=== PATIENT | male | born 1960 | race Caucasian/White ===

== ENCOUNTER 2024-02-22 10:23 | Outpatient (AMB) | payer OTHER, SELFPAY ==
--- NOTE | 2024-02-22 10:34 | MHC.PC.OV ---
Vital Signs 02/22/24 10:43 Height 5 ft 10 in Weight 261 lb 4 oz BMI 37.5 BP 126/74 Blood Pressure Location Lt brachial Position Sitting Respiration 14 Pulse 70 Pulse Source Pulse Oximeter Temp 98.1 F Temp Source Oral Pulse Oximetry (%) 95 Oxygen Delivery Method Room Air Intake Visit Reasons: Est Care Asthma Intake Note: new patient visit. F/U for asthma. Allergies No Known Allergies Allergy (Verified 02/22/24 10:35) Tobacco use date assessed: 02/22/24 Dental Screening Dental Screen Date: 02/22/24 Did you have a dental visit in the last 12 months?: Yes Did you have a dental problem in the last 6 months where you did not have access to dental care?: No Was dental information given to patient?: Patient has dentist HPI HPI Comments History of Present Illness Details This is a 63-year-old male with a past medical history of hyperlipidemia, impaired fasting glucose, hypertension, asthma, aneurysm of the ascending aorta, obesity and arthritis presenting to [facility]. He transferred from [facility]. He scheduled this appointment to discuss asthma symptoms. He got a new dog in January. He has been having increased asthma symptoms since then including dry cough, wheezing, tight breathing and shortness of breath. He usually does not use his rescue inhaler at all, but he has required it about once a day. It temporarily alleviates symptoms. He is on beclomethasone. Typically he took 2 puffs at night for the past 20 years, but 3 weeks ago he started taking in the morning as well. He has missed some morning doses. He reports modest improvement with this. He also endorses environmental allergies. He denies chest pain, hemoptysis, fevers, chills or unexplained weight loss. He does not smoke cigarettes. Sometimes he takes Benadryl at night. He endorses itchy eyes and sneezing. He is followed by Cardiology. He is on Repatha, Bystolic, hydrochlorothiazide-olmesartan and amlodipine. His blood pressure is normal today. His fasting glucose recently was mildly elevated, but his hemoglobin A1c was normal. He would like to be referred anew for screening colonoscopy. He did not hear from [facility] about scheduling it. He has eye exams with Dr. Pham. [facility] Medical History (Updated 02/22/24 @ 13:13 by TAMI Davies) Vitamin D deficiency Rheumatoid arthritis Retinal detachment Hyperlipidemia Internal hemorrhoid Alcohol use Obesity (BMI 30-39.9) Bilateral shoulder region arthritis Hypertension Moderate persistent asthma Aneurysm, ascending aorta Allergic to shellfish Surgical History (Updated 02/22/24 @ 13:14 by TAMI Davies) Hx of hernia repair Family History (Updated 02/22/24 @ 13:16 by TAMI Davies) Mother Diabetes mellitus Father Alzheimer disease Myocardial infarct Sister Hypertension Maternal Aunt Breast cancer Social History Housing: House Patient Tobacco Use Status: Never used Tobacco e-Cigarette/Vaping Use: Never Used service: No Current occupational status: employed Current occupation: [employer] Cognitive needs: No Hearing needs: No Vision needs: No Questionnaire PHQ-9 Over the last 2 weeks, how often have you been bothered by any of the following problems? 1. Little interest or pleasure in doing things: not at all 2. Feeling down, depressed, or hopeless: not at all 3. Trouble falling or staying asleep, or sleeping too much: not at all 4. Feeling tired or having little energy: not at all 5. Poor appetite or overeating: not at all 6. Feeling bad about yourself - or that you are a failure or have let yourself or your family down: not at all 7. Trouble concentrating on things, such as reading the newspaper or watching television: not at all 8. Moving or speaking so slowly that other people could have noticed. Or the opposite - being so fidgety or restless that you have been moving around a lot more than usual: not at all 9. Thoughts that you would be better off or of hurting yourself in some way: not at all Total score: 0 18818 - PHQ-9 Billing: Yes Source: Developed by Drs. Alfonso Burger, Trini Raya, Chiki Michaels and colleagues, with an educational guzman from [employer]. Thrive Questionnaire Date Thrive assessed: 02/22/24 I am a: Patient What is your living situation today?: I have a steady place to live Within the past 12 months, did the food you bought not last and you didn't have the money to get more?: Never true Within the past 12 months, did you worry whether your food would run out before you got money to buy more?: Never true Do you have trouble paying for medicines?: No Do you have trouble getting transportation to medical appointments?: No Do you have trouble paying your heating and electricity bill?: No Do you have trouble taking care of your child, family member or friend?: No Do you have trouble with day-to-day activities such as bathing, preparing meals, shopping, managing finances, etc.?: No Are you currently unemployed and looking for a job?: No Are you interested in more education?: No Please select the resources that you would like help with: None THRIVE Score: 0 AUDIT C Alcohol Use Questionnaire (AUDIT-C) 1. How often do you have a drink containing alcohol?: 4 or more times a week 2. How many drinks containing alcohol do you have on a typical day when you are drinking?: 3 or 4 3. How often do you have six or more drinks on one occasion?: Monthly (couple times a month) Total Score: 7 MIN-7 AMB Questionnaire MIN-7 Date MIN - 7 assessed: 02/22/24 Feeling nervous, anxious, or on edge: 0 = Not at all Not being able to stop or control worryin = Not at all Worrying too much about different things: 0 = Not at all Trouble relaxin = Not at all Being so restless that it is hard to sit still: 0 = Not at all Becoming easily annoyed or irritable: 0 = Not at all Feeling afraid as if something awful might happen: 0 = Not at all Total MIN-7 score (0-4 normal; 5-9 mild; 10-14 moderate; 15-21 severe): 0 Source: Developed by Drs. Alfonso Burger, Trini Raya, Chiki Michaels and colleagues, with an educational guzman from [employer]. MIN-7 Assessment Billing MIN-7 Assessment Tool: MIN-7 Assessment 88921 ACT Questionnaire In the past 4 weeks, how much of the time did your asthma keep you from getting as much done at work, school or at home?: Some of the time During the past 4 weeks, how often have you had shortness of breath?: More than once a day During the past 4 weeks, how often did your asthma symptoms wake you up at night or earlier than usual in the morning?: Not at all During the past 4 weeks, how often have you had to use your rescue inhaler or nebulizer medication?: More than 3 times per day (uses inhaler once a day) How would you rate your asthma control during the past 4 weeks?: Poorly controlled Score: 12 Review of Systems Const Details: Constitutional: No unexplained weight loss, fever, chills, fatigue or night sweats. Respiratory: see HPI Cardiovascular: No chest pain, chest pressure or chest discomfort. No palpitations or pedal edema. Gastrointestinal: No anorexia, nausea, vomiting or diarrhea. No abdominal pain. Physical exam (Primary Care) Vital Signs: Last Vital Signs Temp 98.1 F 02/22/24 10:43 Pulse 70 02/22/24 10:43 Resp 14 02/22/24 10:43 BP 126/74 02/22/24 10:43 Pulse Ox 95 02/22/24 10:43 Oxygen Delivery Method Room Air 02/22/24 10:43 BMI result Body Mass Index 37.5 Tobacco/Smoking Status: Tobacco use Status Tobacco use date assessed 02/22/24 02/22/24 10:49 Patient Tobacco Use Status Never used Tobacco 02/22/24 10:49 e-Cigarette/Vaping Use Never Used 02/22/24 10:49 PHQ-9: PHQ-9 Score PHQ-9: Total score 0 02/22/24 11:26 Thrive Assessment: Date of Thrive Assessment Date Thrive assessed 02/22/24 02/22/24 10:49 Const Other: Constitutional: Alert, in no distress. Ear, Nose and Throat: Canals clear. TMs normal. Normal nasal mucosa. No nasal discharge. Neck: Supple, Full range of motion. No lymphadenopathy. Respiratory: Clear to auscultation. Cardiovascular: S1 S2 regular. No murmurs. Extremities: Warm and well perfused. No clubbing, cyanosis or edema. Psychiatric: Normal mood and affect Assessment and Plan Assessment & Plan (1) Asthma: Code(s): J45.909 - Unspecified asthma, uncomplicated Qualifiers: Asthma complication type: uncomplicated Asthma persistence: persistent Asthma severity: moderate Qualified Code(s): J45.40 - Moderate persistent asthma, uncomplicated Plan: Patient now with uncontrolled asthma-new environmental exposure with dog at home. Discontinue beclomethasone inhaler. Switch to Symbicort 2 puffs twice daily. Gargle, rinse mouth and brush teeth after use. Refilled rescue inhaler. Patient says he is tried [id number] antihistamines. If he does not see improvement with the inhaler alone he can start Singulair. Cautioned patient about potential psychiatric side effects. He will discontinue it if he has any difficulty with it. He does not plan to remove the dog from his home. Refer patient to Allergy and immunology for consideration of immunotherapy. Follow up in 4-6 weeks for re-evaluation. (2) Encounter for screening for malignant neoplasm of colon: Code(s): Z12.11 - Encounter for screening for malignant neoplasm of colon (3) Environmental and seasonal allergies: Code(s): J30.89 - Other allergic rhinitis (4) Hypertension: Code(s): I10 - Essential (primary) hypertension Plan: Controlled. Continue current regimen and efforts at weight loss. Orders: Referrals Gastroenterology Referral Z12.11 - Encounter for screening for malignant neoplasm of colon Allergy & Immunology Referral J30.89 - Other allergic rhinitis, J45.909 - Unspecified asthma, uncomplicated Medications: New budesonide-formoterol 80-4.5 mcg/actuation (Symbicort) 2 puffs inhalation BID 10.2 grams 5RF 30 days montelukast 10 mg PO BEDTIME 30 tabs 5RF albuterol sulfate 90 mcg/actuation 2 puffs inhalation QID PRN 8.5 grams 3RF shortness of breath or wheezing Coding Level of Care Code Est Pt Level 4 (22549) Diagnoses Moderate persistent asthma without complication J45.40 Asthma complication type: uncomplicated Asthma persistence: persistent Asthma severity: moderate Encounter for screening for malignant neoplasm of colon Z12.11 Environmental and seasonal allergies J30.89 Hypertension I10 Additional Codes MIN-7 Assessment Billing - MIN-7 Assessment Tool: MIN-7 Assessment [id number] ([id number])
[2024-02-22 10:43] VITALS: BP 126/74; PULSE 70; RESP 14; TEMP 36.7; O2SAT 95; BMI 37.5
== END 2024-02-22 13:05 | disposition home or self-care (01) ==
PROVIDERS: PCP Physician Assistant Medical; Visit Provider Physician Assistant Medical
DX: J45.40 Moderate persistent asthma, uncomplicated (principal); Z12.11 Encounter for screening for malignant neoplasm of colon; J30.89 Other allergic rhinitis; I10 Essential (primary) hypertension
CPT/HCPCS: 99214

== ENCOUNTER 2024-03-07 09:57 | Outpatient (AMB) | payer OTHER, SELFPAY ==
--- NOTE | 2024-03-07 07:55 | MHC.PC.OV ---
Vital Signs 03/07/24 10:08 Weight 261 lb 6 oz BP 140/82 H Blood Pressure Location Lt brachial Position Sitting Pulse 64 Pulse Source Pulse Oximeter Temp 97.8 F Temp Source Temporal Artery Scan Pulse Oximetry (%) 96 Oxygen Delivery Method Room Air Intake Visit Reasons: est/ asthma/ med review Intake Note: patient here to follow up on asthma. Early Childhood Special Educator Required: No Allergies No Known Allergies Allergy (Verified 03/07/24 10:03) Tobacco use date assessed: 02/22/24 Dental Screening Dental Screen Date: 02/22/24 HPI HPI Comments History of Present Illness Details This is a 63-year-old male with a past medical history of hyperlipidemia, impaired fasting glucose, hypertension, asthma, aneurysm of the ascending aorta, obesity and arthritis presenting for asthma symptoms. Since the patient was last seen on February 19 2024 he picked up Symbicort. He took it for 1 day, but he says it made asthma symptoms feel worse so he stopped it and went back to QVAR. He is taking 1-2 puffs of QVAR in the morning and 2 puffs at night. He is using albuterol frequently still. He started Singulair, but he has only been on it a couple of weeks. He denies side effects on it. He took a trip to [facility], and he was staying in a basement that was musty, and his symptoms were worse when he was there. He is a bit better today. No fevers or chills. Cough is dry. Reviewed at last appointment: He scheduled this appointment to discuss asthma symptoms. He got a new dog in January. He has been having increased asthma symptoms since then including dry cough, wheezing, tight breathing and shortness of breath. He usually does not use his rescue inhaler at all, but he has required it about once a day. It temporarily alleviates symptoms. He is on beclomethasone. Typically he took 2 puffs at night for the past 20 years, but 3 weeks ago he started taking in the morning as well. He has missed some morning doses. He reports modest improvement with this. He also endorses environmental allergies. He denies chest pain, hemoptysis, fevers, chills or unexplained weight loss. He does not smoke cigarettes. Sometimes he takes Benadryl at night. He endorses itchy eyes and sneezing. [facility] Medical History (Updated 03/07/24 @ 14:04 by TAMI Davies) Allergic rhinitis Vitamin D deficiency Rheumatoid arthritis Retinal detachment Hyperlipidemia Internal hemorrhoid Alcohol use Obesity (BMI 30-39.9) Bilateral shoulder region arthritis Hypertension Moderate persistent asthma Aneurysm, ascending aorta Allergic to shellfish Surgical History (Updated 02/22/24 @ 13:14 by TAMI Davies) Hx of hernia repair Family History (Updated 02/22/24 @ 13:16 by TAMI Davies) Mother Diabetes mellitus Father Alzheimer disease Myocardial infarct Sister Hypertension Maternal Aunt Breast cancer Social History Housing: House Patient Tobacco Use Status: Never used Tobacco e-Cigarette/Vaping Use: Never Used Second Hand Smoke Exposure: No service: No Current occupational status: employed Current occupation: [employer] Cognitive needs: No Hearing needs: No Vision needs: No Questionnaire Thrive Questionnaire Date Thrive assessed: 02/22/24 MIN-7 AMB Questionnaire MIN-7 Date MIN - 7 assessed: 02/22/24 Source: Developed by Drs. Alfonso Burger, Trini Raya, Chiki Michaels and colleagues, with an educational guzman from [employer]. ACT Questionnaire In the past 4 weeks, how much of the time did your asthma keep you from getting as much done at work, school or at home?: Some of the time During the past 4 weeks, how often have you had shortness of breath?: Once a day During the past 4 weeks, how often did your asthma symptoms wake you up at night or earlier than usual in the morning?: 4 or more nights a week During the past 4 weeks, how often have you had to use your rescue inhaler or nebulizer medication?: More than 3 times per day How would you rate your asthma control during the past 4 weeks?: Poorly controlled Score: 9 Review of Systems Const Details: Constitutional: No unexplained weight loss, fever, chills, fatigue or night sweats. Respiratory: see HPI Cardiovascular: No chest pain, chest pressure or chest discomfort. No palpitations or pedal edema. Gastrointestinal: No anorexia, nausea, vomiting or diarrhea. No abdominal pain. Physical exam (Primary Care) Vital Signs: Last Vital Signs Temp 97.8 F 03/07/24 10:08 Pulse 64 03/07/24 10:08 BP 140/82 H 03/07/24 10:08 Pulse Ox 96 03/07/24 10:08 Oxygen Delivery Method Room Air 03/07/24 10:08 Tobacco/Smoking Status: Tobacco use Status Tobacco use date assessed 02/22/24 03/07/24 07:56 Patient Tobacco Use Status Never used Tobacco 03/07/24 07:56 e-Cigarette/Vaping Use Never Used 03/07/24 07:56 Thrive Assessment: Date of Thrive Assessment Date Thrive assessed 02/22/24 03/07/24 07:56 Const Other: Constitutional: Alert, in no distress. Ear, Nose and Throat: Canals clear. TMs normal. Normal nasal mucosa. No nasal discharge. Neck: Supple, Full range of motion. No lymphadenopathy. Respiratory: Clear to auscultation. Cardiovascular: S1 S2 regular. No murmurs. Extremities: Warm and well perfused. No clubbing, cyanosis or edema. Psychiatric: Normal mood and affect Assessment and Plan Assessment & Plan (1) Moderate persistent asthma: Code(s): J45.40 - Moderate persistent asthma, uncomplicated Qualifiers: Asthma complication type: uncomplicated Qualified Code(s): J45.40 - Moderate persistent asthma, uncomplicated (2) Allergic rhinitis: Code(s): J30.9 - Allergic rhinitis, unspecified Qualifiers: Allergic rhinitis trigger: other Allergic rhinitis seasonality: non-seasonal Qualified Code(s): J30.89 - Other allergic rhinitis Plan Continue Singulair 10 mg daily. Prednisone burst for 5 days. Side effects and administration reviewed. Trial of Dulera 2 puffs twice daily. Gargle and rinse mouth after use. Advised patient to start a multivitamin due to the negative effects on bones and joints with inhaled corticosteroids. Continue albuterol as needed. The patient has already been referred to Allergy and immunology. He has a follow up appointment scheduled in April. Medications: New prednisone 60 mg (3 x 20 mg) PO DAILY 5 days 15 tabs 0RF Coding Level of Care Code Est Pt Level 4 (87026) Complex EM visit Add On G2211 Diagnoses Moderate persistent asthma without complication J45.40 Asthma complication type: uncomplicated Non-seasonal allergic rhinitis due to other allergic trigger J30.89 Allergic rhinitis trigger: other Allergic rhinitis seasonality: non-seasonal
[2024-03-07 10:08] VITALS: BP 140/82; PULSE 64; TEMP 36.6; O2SAT 96
== END 2024-03-07 10:42 | disposition home or self-care (01) ==
PROVIDERS: PCP Physician Assistant Medical; Visit Provider Physician Assistant Medical
DX: J45.40 Moderate persistent asthma, uncomplicated (principal); J30.89 Other allergic rhinitis
CPT/HCPCS: 99213

== ENCOUNTER 2024-04-25 09:11 | Outpatient (AMB) | payer OTHER, SELFPAY ==
--- NOTE | 2024-04-25 09:16 | MHC.PC.OV ---
Vital Signs 04/25/24 09:24 Height 5 ft 10 in Weight 263 lb BMI 37.7 BP 134/78 Blood Pressure Location Lt brachial Position Sitting Respiration 16 Pulse 61 Pulse Source Pulse Oximeter Temp 98.3 F Temp Source Oral Pulse Oximetry (%) 96 Oxygen Delivery Method Room Air Intake Visit Reasons: asthma recheck Intake Note: patient here for follow up on asthma. Geriatric Nursing Assistant Required: No Allergies No Known Allergies Allergy (Verified 04/25/24 09:18) Tobacco use date assessed: 04/25/24 Dental Screening Dental Screen Date: 04/25/24 Did you have a dental visit in the last 12 months?: Yes Did you have a dental problem in the last 6 months where you did not have access to dental care?: No Was dental information given to patient?: Patient has dentist HPI HPI Comments History of Present Illness Details This is a 63-year-old male with a past medical history of hyperlipidemia, impaired fasting glucose, hypertension, asthma, aneurysm of the ascending aorta, obesity and arthritis presenting for asthma follow up. Symbicort was stopped because it made asthma symptoms worse. He went back on QVAR. He is taking Singulair. He stopped taking Claritin. He only took it for a few days, but he did not feel a difference on it. He was then placed on Dulera, and he is taking 2 puffs twice a day. He reports some improvement. He fell better when he was on vacation (away from his dog). He still requires albuterol once or twice per day. Endorses chest congestion, wheezing and feels like he has airway restriction. He does not always feel like albuterol alleviates the symptoms completely. No fevers, chills, chest pain or exertional symptoms. Cough is dry. Reviewed initial appointment: He scheduled this appointment to discuss asthma symptoms. He got a new dog in January. He has been having increased asthma symptoms since then including dry cough, wheezing, tight breathing and shortness of breath. He usually does not use his rescue inhaler at all, but he has required it about once a day. It temporarily alleviates symptoms. He is on beclomethasone. Typically he took 2 puffs at night for the past 20 years, but 3 weeks ago he started taking in the morning as well. He has missed some morning doses. He reports modest improvement with this. He also endorses environmental allergies. He denies chest pain, hemoptysis, fevers, chills or unexplained weight loss. He does not smoke cigarettes. Sometimes he takes Benadryl at night. He endorses itchy eyes and sneezing. ROS: Constitutional: No unexplained weight loss, fever, chills, fatigue or night sweats. Respiratory: No hemoptysis or sputum production. Cardiovascular: No chest pain, palpitations or edema. Gastrointestinal: No acid reflux, nausea, vomiting or abdominal pain Neurologic: No headache, dizziness, syncope Physical exam: Constitutional: Alert, in no distress. Head: Normocephalic. Neck: Supple, Full range of motion. No lymphadenopathy. No palpable thyroid masses. Respiratory: Clear to auscultation. Cardiovascular: S1 S2 regular. No murmurs. Extremities: Warm and well perfused. No clubbing, cyanosis or edema. Psychiatric: Normal mood and affect [facility] Medical History (Updated 03/07/24 @ 14:04 by TAMI Davies) Allergic rhinitis Vitamin D deficiency Rheumatoid arthritis Retinal detachment Hyperlipidemia Internal hemorrhoid Alcohol use Obesity (BMI 30-39.9) Bilateral shoulder region arthritis Hypertension Moderate persistent asthma Aneurysm, ascending aorta Allergic to shellfish Surgical History (Updated 02/22/24 @ 13:14 by TAMI Davies) Hx of hernia repair Family History (Updated 02/22/24 @ 13:16 by TAMI Davies) Mother Diabetes mellitus Father Alzheimer disease Myocardial infarct Sister Hypertension Maternal Aunt Breast cancer Social History Housing: House Patient Tobacco Use Status: Never used Tobacco e-Cigarette/Vaping Use: Never Used Second Hand Smoke Exposure: No service: No Current occupational status: employed Current occupation: [employer] Cognitive needs: No Hearing needs: No Vision needs: No Questionnaire Thrive Questionnaire Date Thrive assessed: 02/22/24 MIN-7 AMB Questionnaire MIN-7 Date MIN - 7 assessed: 02/22/24 Source: Developed by Drs. Alfonso Burger, Trini Raya, Chiki Michaels and colleagues, with an educational guzman from [employer]. ACT Questionnaire In the past 4 weeks, how much of the time did your asthma keep you from getting as much done at work, school or at home?: Some of the time During the past 4 weeks, how often have you had shortness of breath?: Once a day During the past 4 weeks, how often did your asthma symptoms wake you up at night or earlier than usual in the morning?: 4 or more nights a week During the past 4 weeks, how often have you had to use your rescue inhaler or nebulizer medication?: More than 3 times per day (once a daily) How would you rate your asthma control during the past 4 weeks?: Somewhat controlled Score: 10 Physical exam (Primary Care) Vital Signs: Last Vital Signs Temp 98.3 F 04/25/24 09:24 Pulse 61 04/25/24 09:24 Resp 16 04/25/24 09:24 BP 134/78 04/25/24 09:24 Pulse Ox 96 04/25/24 09:24 Oxygen Delivery Method Room Air 04/25/24 09:24 BMI result Body Mass Index 37.7 Tobacco/Smoking Status: Tobacco use Status Tobacco use date assessed 04/25/24 04/25/24 09:27 Patient Tobacco Use Status Never used Tobacco 04/25/24 09:27 e-Cigarette/Vaping Use Never Used 04/25/24 09:27 Thrive Assessment: Date of Thrive Assessment Date Thrive assessed 02/22/24 04/25/24 09:27 Assessment and Plan Assessment & Plan (1) Moderate persistent asthma: Code(s): J45.40 - Moderate persistent asthma, uncomplicated Qualifiers: Asthma complication type: uncomplicated Qualified Code(s): J45.40 - Moderate persistent asthma, uncomplicated (2) Allergic rhinitis: Code(s): J30.9 - Allergic rhinitis, unspecified Qualifiers: Allergic rhinitis trigger: other Allergic rhinitis seasonality: non-seasonal Qualified Code(s): J30.89 - Other allergic rhinitis Plan Continue Dulera 2 puffs twice daily. Continue Singulair 10 mg daily. I think patient should also resume Claritin, but he does not feel like it helped though he only took it a few days. We will try Combivent 1 puff every 6 hours as needed. Advised not to take albuterol rescue if he is using Combivent for rescue. Chest x-ray requested. He has an appointment with Allergy and immunology in 2 weeks for asthma and allergy management. Orders: Orders XR chest 2V Today J45.40 - Moderate persistent asthma, uncomplicated Medications: New ipratropium-albuterol 20-100 mcg/actuation (Combivent Respimat) 1 puff inhalation Q6H PRN 4 grams 0RF shortness of breath or wheezing Coding Level of Care Code Est Pt Level 4 (63514) Complex EM visit Add On G2211 Diagnoses Moderate persistent asthma without complication J45.40 Asthma complication type: uncomplicated Non-seasonal allergic rhinitis due to other allergic trigger J30.89 Allergic rhinitis trigger: other Allergic rhinitis seasonality: non-seasonal
[2024-04-25 09:24] VITALS: BP 134/78; PULSE 61; RESP 16; TEMP 36.8; O2SAT 96; BMI 37.7
== END 2024-04-25 09:55 | disposition home or self-care (01) ==
PROVIDERS: PCP Physician Assistant Medical; Visit Provider Physician Assistant Medical
DX: J45.40 Moderate persistent asthma, uncomplicated (principal); J30.89 Other allergic rhinitis
CPT/HCPCS: 99214

== ENCOUNTER 2025-01-09 08:30 | Outpatient (AMB) | payer OTHER, SELFPAY ==
--- NOTE | 2025-01-09 08:34 | A.OFFPC_ITS ---
Vital Signs 01/09/25 08:46 Height 5 ft 10 in Weight 251 lb 3 oz BMI 36.0 BP 138/88 Blood Pressure Location Lt brachial Position Sitting Respiration 14 Pulse 61 Pulse Source Pulse Oximeter Temp 97.9 F Temp Source Temporal Artery Scan Pulse Oximetry (%) 95 Oxygen Delivery Method Room Air Intake Visit Reasons: annual physical exam Intake Note: Jone presents in the office today for his annual physical. Allergies shellfish derived Allergy (Mild, Verified 01/09/25 08:37) throat swells Medication List - Last Reconciled 01/09/25 by TAMI Davies albuterol sulfate 90 mcg/actuation 2 puffs inhalation QID PRN amlodipine 10 mg PO DAILY beclomethasone dipropionate 80 mcg/actuation (Qvar RediHaler) 1 inh inhalation BID cyclobenzaprine 10 mg PO BEDTIME PRN evolocumab (Repatha SureClick) 140 mg subcut Q2W [id number]-oqchxkgtn-[id number] 100-62.5-25 mcg (Trelegy Ellipta) 1 inh inhalation Q24H losartan-hydrochlorothiazide 50-12.5 mg 2 tabs PO DAILY meloxicam 7.5 mg PO DAILY PRN minoxidil 10 mg PO DAILY montelukast 10 mg PO BEDTIME nebivolol 5 mg PO DAILY Tobacco use date assessed: 01/09/25 Dental Screening Dental Screen Date: 01/09/25 Did you have a dental visit in the last 12 months?: Yes Did you have a dental problem in the last 6 months where you did not have access to dental care?: No Was dental information given to patient?: Patient has dentist HPI HPI Comments History of Present Illness Details This is a 64-year-old male with a past medical history of hyperlipidemia, impaired fasting glucose, hypertension, asthma, aneurysm of the ascending aorta, obesity and arthritis presenting for a physical exam. He is followed by Dr. Slade. He is on Trelegy, QVAR and Singulair. He takes albuterol 0-1 times per week and with exercise. He still has the dry cough which they feel is related to asthma. He is also allergic to the dog he has at home, but his daughter is moving and will be taking the dog with her. He is followed by Dr. Tierney, cardiology. He is on Repatha, Bystolic, hydrochlorothiazide-olmesartan and amlodipine. His blood pressure is suboptimal today. Patient says he has an echocardiogram scheduled this summer to monitor his aortic aneurysm. He denies chest pain or shortness of breath. Patient is followed by Nephrology, Dr. Duran, for hypertension. He has a history of elevated fasting glucose, but his hemoglobin A1c has been normal. He would like a referral to [facility] in [place] for a s creening colonoscopy. He is overdue. He has eye exams with An[facility]. He takes cyclobenzaprine and meloxicam infrequently for arthritis back pain. We discussed immunizations, and he received Tdap here. He is going to pursue Prevnar 20 and Shingrix vaccine at his pharmacy. He will have blood work done here today. His revenue manager recent checked a CMP and lipid profile. ROS: Constitutional: No unexplained weight loss, fever, chills, fatigue or night sweats. Eyes: No vision changes, blurry vision, double vision, eye pain, eye redness, eye discharge. ENT: No hearing loss, sneezing, congestion, runny nose or sore throat. Respiratory: No shortness of breath, cough or sputum production. Cardiovascular: No chest pain, chest pressure or chest discomfort. No p alpitations or pedal edema. Gastrointestinal: No anorexia, nausea, vomiting or diarrhea. No abdominal pain or blood in stool. Genitourinary: No dysuria, hematuria, urinary frequency. No testicular pain, swelling, urethral discharge, masses. Neurologic: No headache, dizziness, syncope, unilateral weakness, ataxia, numbness or tingling in the extremities. Musculoskeletal: Occasional back pain. No joint pain or joint swelling. Hematologic/Lymphatics: No bleeding or bruising. No painful lymph nodes. Skin: No rash or itching. Endocrine: No cold or heat intolerance. No polyuria or polydipsia. Psychiatric: No depression or anxiety. No SI/HI. Physical exam: Constitutional: Alert, in no distress. Head: Normocephalic. Eyes: Pupils are equal, round and reactive to light. Extraocular muscles intact. Ear, Nose and Throat: Canals clear. TMs normal. Normal nasal mucosa. No nasal discharge. No oral lesions. Neck: Supple, Full range of motion. No lymphadenopathy. No palpable thyroid masses. Respiratory: Clear to auscultation. Cardiovascular: S1 S2 regular. No murmurs. No carotid bruits. Gastrointestinal: Abdomen soft, non-tender, non-distended. Normal bowel sounds. No palpable masses. Genitourinary: User Experience Developer present AT present. No scrotal/testicular masses. No palpable hernias. Neurologic: No focal neurological deficits. Symmetric patellar reflexes. Moves all extremities spontaneously. Sensation intact bilaterally. Skin: No rashes Musculoskeletal: No gross deformities. Normal range of motion. Extremities: Warm and well perfused. No clubbing, cyanosis or edema. Intact peripheral pulses bilaterally. Psychiatric: Normal mood and affect [facility] Medical History (Updated 01/09/25 @ 09:20 by TAMI Davies) Routine physical examination IFG (impaired fasting glucose) Allergic rhinitis Vitamin D deficiency Rheumatoid arthritis Retinal detachment Hyperlipidemia Internal hemorrhoid Alcohol use Obesity (BMI 30-39.9) Bilateral shoulder region arthritis Hypertension Moderate persistent asthma Aneurysm, ascending aorta Allergic to shellfish Surgical History (Updated 02/22/24 @ 13:14 by TAMI Davies) Hx of hernia repair Family History (Updated 01/09/25 @ 08:43 by Nano Boyce MA) Mother Diabetes mellitus Father Alzheimer disease Myocardial infarct Sister Hypertension Maternal Aunt Breast cancer Social History (Updated 01/09/25 @ 08:43 by Nano Boyce MA) Housing: House Alcohol intake: current Patient Tobacco Use Status: Never used Tobacco e-Cigarette/Vaping Use: Never Used Second Hand Smoke Exposure: No service: No Current occupational status: employed Current occupation: [employer] Cognitive needs: No Hearing needs: No Vision needs: No Questionnaire PHQ-9 Over the last 2 weeks, how often have you been bothered by any of the following problems? 1. Little interest or pleasure in doing things: not at all 2. Feeling down, depressed, or hopeless: not at all 3. Trouble falling or staying asleep, or sleeping too much: several days 4. Feeling tired or having little energy: several days 5. Poor appetite or overeating: not at all 6. Feeling bad about yourself - or that you are a failure or have let yourself or your family down: not at all 7. Trouble concentrating on things, such as reading the newspaper or watching television: not at all 8. Moving or speaking so slowly that other people could have noticed. Or the opposite - being so fidgety or restless that you have been moving around a lot more than usual: not at all 9. Thoughts that you would be better off or of hurting yourself in some way: not at all Total score: 2 Depression Screening Interpretation: Negative Depression Screening Done: Yes 55653 - PHQ-9 Billing: Patient declined-do not bill Source: Developed by Drs. Alfonso Burger, Trini Raya, Chiki Michaels and colleagues, with an educational guzman from [employer]. Thrive Questionnaire Date Thrive assessed: 01/09/25 I am a: Patient What is your living situation today?: I have a steady place to live Within the past 12 months, did the food you bought not last and you didn't have the money to get more?: Never true Within the past 12 months, did you worry whether your food would run out before you got money to buy more?: Never true Do you have trouble paying for medicines?: No Do you have trouble getting transportation to medical appointments?: No Do you have trouble paying your heating and electricity bill?: No Do you have trouble taking care of your child, family member or friend?: No Do you have trouble with day-to-day activities such as bathing, preparing meals, shopping, managing finances, etc.?: No Are you currently unemployed and looking for a job?: No Are you interested in more education?: No Please select the resources that you would like help with: None Currently or been in a relationship where the following occur: No concerns reported THRIVE Score: 0 AUDIT C Alcohol Use Questionnaire (AUDIT-C) 1. How often do you have a drink containing alcohol?: 4 or more times a week 2. How many drinks containing alcohol do you have on a typical day when you are drinking?: 3 or 4 3. How often do you have six or more drinks on one occasion?: Monthly Total Score: 7 Score Reviewed/Action Taken: Yes MIN-7 AMB Questionnaire MIN-7 Date MIN - 7 assessed: 01/09/25 Feeling nervous, anxious, or on edge: 0 = Not at all Not being able to stop or control worryin = Not at all Worrying too much about different things: 0 = Not at all Trouble relaxin = Not at all Being so restless that it is hard to sit still: 0 = Not at all Becoming easily annoyed or irritable: 0 = Not at all Feeling afraid as if something awful might happen: 0 = Not at all Total MIN-7 score (0-4 normal; 5-9 mild; 10-14 moderate; 15-21 severe): 0 Source: Developed by Drs. Alfonso Burger, Trini Raya, Chiki Michaels and colleagues, with an educational guzman from [employer]. MIN-7 Assessment Billing MIN-7 Assessment Tool: MIN-7 Assessment 13265 ACT Questionnaire In the past 4 weeks, how much of the time did your asthma keep you from getting as much done at work, school or at home?: None of the time During the past 4 weeks, how often have you had shortness of breath?: 1-2 times a week During the past 4 weeks, how often did your asthma symptoms wake you up at night or earlier than usual in the morning?: Not at all During the past 4 weeks, how often have you had to use your rescue inhaler or nebulizer medication?: Once a week or less How would you rate your asthma control during the past 4 weeks?: Somewhat controlled ACT Interpretation: Positive Score: 21 Physical exam (Primary Care) Vital Signs: Last Vital Signs Temp 97.9 F 01/09/25 08:46 Pulse 61 01/09/25 08:46 Resp 14 01/09/25 08:46 BP 138/88 01/09/25 08:46 Pulse Ox 95 01/09/25 08:46 Oxygen Delivery Method Room Air 01/09/25 08:46 BMI result Body Mass Index 36.0 Tobacco/Smoking Status: Tobacco use Status Tobacco use date assessed 01/09/25 01/09/25 08:49 Patient Tobacco Use Status Never used Tobacco 01/09/25 08:49 e-Cigarette/Vaping Use Never Used 01/09/25 08:49 PHQ-9: PHQ-9 Score PHQ-9: Total score 2 01/09/25 09:05 Depression Screening Interpretation: Negative Thrive Assessment: Date of Thrive Assessment Date Thrive assessed 01/09/25 01/09/25 08:49 Currently or been in a relationship where the following occur: No concerns reported Immunizations Boostrix Tdap 2.5 Lf unit-8 mcg-5 Lf/0.5 mL intramuscular syringe Performing Provider: TAMI Davies Performing Location: [facility] [place] Family Medicine Administered by: Rachael Garcia RN on 01/09/25 09:23 Dose Route Admin Location Dispensed Lot Number Expiration Date NDC Rn Mental Health 0.5 mL IM Left Deltoid 0.5 mL [id number] 09/20/26 13528-670-89 [employer]LA[employer]OSM[employer] VIS Given Date VIS Provided VIS Publication Date 01/09/25 Single Vaccine 21 Eligibility Eligibility Date Funding Source Not [facility] Eligible 01/09/25 Private Administration Comments: Vaccine administered by medical corps officer Nano Boyce under nurse supervision. Coding Level of Care Code Est Pt Prev Care 40-64y(36038) Diagnoses Routine physical examination Z00.00 IFG (impaired fasting glucose) R73.01 Vitamin D deficiency E55.9 Hyperlipidemia E78.5 Hypertension I10 Moderate persistent asthma without complication J45.40 Asthma complication type: uncomplicated Aneurysm, ascending aorta I71.21 Additional Codes Asthma Control Questionnaire - ACT Interpretation: Positive ([id number]) MIN-7 Assessment Billing - MIN-7 Assessment Tool: MIN-7 Assessment 26383 ([id number]) Assessment & Plan Assessment & Plan (1) Routine physical examination: Code(s): Z00.00 - Encounter for general adult medical examination without abnormal findings Category: Medical Plan: Patient is seen today for a routine physical. As part of this visit we reviewed the following issues, which are considered and essential part of preventative health in this age group: - Testicular cancer screening, which includes self exam teaching - Screening for colon cancer - Discussed Prostate cancer screening - Nutritional and exercise counseling - Counseling of injury prevention including fire prevention, smoke alarms and seat belt usage - Screening for depression - Education about skin cancer - Recommendations about immunizations - Recommendation of an eye exam (2) IFG (impaired fasting glucose): Code(s): R73.01 - Impaired fasting glucose Category: Medical Plan: Check hemoglobin A1c. Recommended diet low in carbohydrates and sugar. (3) Vitamin D deficiency: Code(s): E55.9 - Vitamin D deficiency, unspecified Category: Medical Plan: Check vitamin-D level. (4) Hyperlipidemia: Code(s): E78.5 - Hyperlipidemia, unspecified Category: Medical Plan: Managed by cardiology. Patient on Repatha. Lifestyle modifications reviewed. (5) Hypertension: Code(s): I10 - Essential (primary) hypertension Category: Medical Plan: Blood pressure is suboptimal today. Patient says he has a follow up scheduled with Nephrology. He will continue current medications for now. (6) Moderate persistent asthma: Code(s): J45.40 - Moderate persistent asthma, uncomplicated Category: Medical Qualifiers: Asthma complication type: uncomplicated Qualified Code(s): J45.40 - Moderate persistent asthma, uncomplicated Plan: Continue management per Allergy and immunology. (7) Aneurysm, ascending aorta: Code(s): I71.21 - Aneurysm of the ascending aorta, without rupture Category: Medical Plan: Patient reports he has a follow up echocardiogram this summer. Followed by Cardiology. Plan Routine physical in 1 year. Orders: Orders Hemoglobin A1c Today R73.01 - Impaired fasting glucose Complete Blood Count no Diff Today E55.9 - Vitamin D deficiency, unspecified, E78.5 - Hyperlipidemia, unspecified, I10 - Essential (primary) hypertension, Z00.00 - Encounter for general adult medical examination without abnormal findings Prostate Specific Antigen Today Z12.5 - Encounter for screening for malignant neoplasm of prostate TDaP Immunization Today Z23 - Encounter for immunization Vitamin D 25-OH (D2 and D3) Today E55.9 - Vitamin D deficiency, unspecified Referrals Gastroenterology Referral Z12.11 - Encounter for screening for malignant neoplasm of colon Medications: New cyclobenzaprine 10 mg PO BEDTIME PRN 30 tabs 3RF muscle spasm Changed From meloxicam 7.5 mg PO DAILY To meloxicam 7.5 mg PO DAILY PRN 30 tabs 3RF pain
[2025-01-09 08:46] VITALS: BP 138/88; PULSE 61; RESP 14; TEMP 36.6; O2SAT 95; BMI 36.0
--- OUTSIDE RECORDS SUMMARY | 2025-01-09 08:46 | XMS_ITS | Encounter Summary ---
Author Organization [facility] Address [address] [place] [address] Care Team Providers Care Applications Architect Name Role Phone SladeLinnette Primary Care Provider [phone] Encounter Details Date Type Department Care Team (Late st Contact Info) Description 06/15/2021 Orders Only [facility] Orthopedic Surgery [address] [facility] [address] [place] [address] John David MD [address] [facility] [address] [place] [address] Social History Tobacco Use Types Packs/Day Years Used Date Smoking Tobacco: Never Assessed Comments Unknown Sex and Gender Information Value Date Recorded Sex Assigned at Not on file Legal Sex Female 1:42 PM EDT Gender Identity Not on file Sexual Orientation Not on file documented as of this encounter Plan of Treatment Scheduled Orders Name Type Priority Associated Diagnoses Orde r Schedule XRAY SPINE, CERVICAL; 3 VIEWS OR LESS FC Imaging Routine Neck pain Expected: 06/15/2021, Expires: 06/15/2024 documented as of this encounter Visit Diagnoses Diagnosis Neck pain- Primary Cervicalgia documented in this encounter Care Teams Applications Architect Relationship Specialty Start Date End Date Linnette June [address] [place] [id number] PCP - General Internal Medicine 06/09/21 documented as of this encounter
--- OUTSIDE RECORDS SUMMARY | 2025-01-09 08:46 | XMS_ITS | Clinical Summary ---
Author Organization [facility] Address [address] [place] [address] Care Team Providers Care Electronic Engineering Draftsperson Name Role Phone Linnette June Primary Care Provider [phone] Allergies No known active allergies Medications Atorvastatin Calcium (LIPITOR) 20 MG tablet Take 20 mg by mouth 1 (one) time each day AFTER SUPPER 10/11/2020 Active Qvar RediHaler 80 MCG/ACT AEROSOL, BREATH ACTIVATED INHALE 2 PUFFS BY MOUTH TWICE DAILY INHALE 2 PUFFS BY MOUTH 2 TIMES DAILY. RINSE MOUTH AND THROAT AFTER USE 09/01/2020 Active Immunizations Name Administration Dates Next Due COVID-19, mRNA (Pfizer Pre F all 2022) Monovalent, 30 mcg/0.3 ml 08/23/2021,10/29/2020,10/08/2020 Covid-19, mRNA (Pfizer Pre F all 2022) Monovalent, 30 mcg/0.3 ml giacomo-sucrose (12+) 03/01/2022 Social History Tobacco Use Types Packs/Day Years Used Date Smoking Tobacco: Never Assessed Intimate Partner Violence Answer Date R ecorded Fear of Current or Ex-Partner Not on file Emotionally Abused Not on file 05/04/2023 Physically Abused Not on file 05/04/2023 Sexually Abused Not on file 05/04/2023 Feel Safe at Home Not on file 05/04/2023 Comments Unknown Sex and Gender Information Value Date Recorded Sex Assigned at Not on file Legal Sex Female 1:42 PM EDT Gender Identity Not on file Sexual Orientation Not on file Plan of Treatment Health Maintenance Due Date Last Done Comments Hepatitis C Screening 1962 Pap Smear 1978 DTaP/Tdap/Td (1 - Tdap) 1980 Mammogram/Breast Imaging 2002 Colon Cancer Screening 2007 Pneumococcal 50+ years (1 of 1 - PCV) 2012 Zoster (Shingrix) (1 of 2) 2012 COVID-19 Vaccine (5 - 2023- season) 2024 03/01/2022, 08/23/2021, 10/29/2020, Additional history exists Influenza (Season Ended) 2025 RSV (1 - 1-dose 75+ series) 2037 HPV Vaccine Aged Out No longer eligi ble based on patient's age to complete this topic Hep A Aged Out No longer eligi ble based on patient's age to complete this topic Hep B Aged Out No longer eligi ble based on patient's age to complete this topic Hib Aged Out No longer eligi ble based on patient's age to complete this topic Meningococcal ACWY Aged Out No longer eligible based on patient's age to complete this topic Zoster (Zostavax) Discontinued Insurance * Guarantor: GUERRERO ALVARADO Account Type Relation to Patient Date of Phone Billing Address Personal/Family [address] [place] [id number] [employer] Care Teams Electronic Engineering Draftsperson Relationship Specialty Start Date End Date Linnette June [address] [place] [phone] PCP - General Internal Medicine 06/09/21
--- OUTSIDE RECORDS SUMMARY | 2025-01-09 08:46 | XMS_ITS | Clinical Summary ---
Author Organization [facility] Facility Address [address] [address] Care Team Providers Care Private Chef Name Role Phone Symone Dey PA-C Primary Care Provider [phone] Allergies Active Allergy Reactions Criticality Noted Date Comments Hydrochlorothiazide W-Spironolactone Palpitations Low 04/23/2024 Shellfish Allergy Other (see comments) 02/16/20 21 Simvastatin Other (see comments) 04/23/2024 Medications beclomethasone (Qvar) 80 MCG/ACT inhaler Inhale 2 puffs every night 4 Active albuterol HFA (PROVENTIL HFA;VENTOLIN HFA) 108 (90 Base) MCG/ACT inhaler Inhale 1 puff Active aspirin 325 MG EC tablet Take 1 tablet by mouth 1 (one) time each day Active Repatha SureClick 140 MG/ML solution auto-injector Inject 2 mL into the shoulder, thigh, or buttocks every 14 (fourteen) days Active meloxicam (MOBIC) 7.5 MG tablet Take 7.5 mg by mouth if needed for moderate pain 3 Active Dulera 100-5 MCG/ACT inhaler Inhale 2 puffs in the morning and 2 puffs in the evening. 4 Active montelukast (SINGULAIR) 10 MG tablet Take 10 mg by mouth at bed time 4 Active Fluticasone-Umecl idin-Vilant (TRELEGY ELLIPTA IN) Inhale Active nebivolol (Bystolic) 5 MG tablet Take 1 tablet (5 mg total) by mouth 1 (one) time each day 90 tablet 3 4 Active olmesartan-hydroC HLOROthiazide (BENICAR HCT) 40-12.5 MG per tabletIndications :Benign essential hypertension Take 1 tablet by mouth in the morning and 1 tablet in the evening. 180 tablet 3 4 Active minoxidil (LONITEN) 10 MG tablet TAKE ONE TABLET BY MOUTH DAILY 30 tablet 11 4 Active amLODIPine (NORVASC) 10 MG tabletIndications :Benign essential hypertension Take 1 tablet (10 mg total) by mouth 1 (one) time each day 90 tablet 3 5 Active Active Problems Problem Noted Date Diagnosed Date Proteinuria, not otherwise specified 04/23/2024 Benign essential hypertension 02/15/2021 Resolved Problems Problem Noted Date Diagnosed Date Resolved Date Elevated blood pressure read ing without diagnosis of hypertension 02/15/2021 06/30/2021 Encounters Date Type Department Care Team Description 10/14/2024 Refill [facility] [address] [phone] Martin Ameena Benign essential hypertension from Last 3 Months Family History Medical History Relation Comments Heart disease Father Hypertension Father Hypertension Sibling Relation Status Comments Father Alive Mother Alive Sibling Social History Tobacco Use Types Packs/Day Years Used Date Smoking Tobacco: Never Smokeless Tobacco: Never Tobacco Cessation:Counseling Given: No Alcohol Use Standard Drinks/Week Comments Yes 0 (1 standard drink = 0.6 oz pure alcohol) Alcoholic Drinks/day: Occasional social drink Sex and Gender Information Value Date Recorded Sex Assigned at Not on file Legal Sex Male 5:14 PM EST Gender Identity Not on file Sexual Orientation Not on file Last Filed Vital Signs Vital Sign Reading Time Taken Comments Blood Pressure 151/87 07/25/2024 3:57 PM EST Pulse 60 07/25/2024 3:57 PM EST Temperature - - Respiratory Rate - - Oxygen Saturation 96% 04/23/2024 8:27 AM EDT Inhaled Oxygen Concentration - - Weight 111 kg (245 lb) 07/25/2024 3:57 PM EST Height 177.8 cm (5' 10 ) 04/23/2024 8:27 AM EDT Body Mass Index 35.15 04/23/2024 8:27 AM EDT Plan of Treatment Upcoming Encounters Date Type Department Care Team ([facility] st Contact Info) Description 01/23/2025 3:00 PM EDT Office Visit [facility] [address] [place] [id number] Jude Duran MD [address] [address] 04/17/2025 4:15 PM EDT Office Visit [facility] [address] [place] [id number] Jude Duran MD [address] [address] Health Maintenance Due Date Last Done Comments Colorectal Cancer Screening: Annual FOBT 2011 Colorectal Cancer Screening: Colonoscopy 2011 Colorectal Cancer Screening: Sigmoidoscopy 2011 Pneumococcal Vaccine: 50+ Ye ars (2 of 2 - PCV) 07/26/2012 07/26/2011 Influenza Vaccine (Season Ended) 2025 Pneumococcal Vaccine: Peds ( 0 to 5 Years) and At-Risk Patients (6 to 49 Years) Discontinued 07/26/2011 Hepatitis B Vaccine Aged Out No longe r eligible based on patient's age to complete this topic Insurance [employer] Care Teams Private Chef Relationship Specialty Start Date End Date Symone Dey PA-C [address] [place] [phone] PCP - General Internal Medicine 03/23/23
--- OUTSIDE RECORDS SUMMARY | 2025-01-09 08:46 | XMS_ITS | Encounter Summary ---
Author Organization [facility] Address 100 [facility] 200 [place] [address] Phone Care Team Providers Care Ball Machine Operator Name Role Phone Symone Dey PA-C Primary Care Provider [phone] Reason for Visit * Reason Comments Med Refill Encounter Details Date Type Department Care Team (Late Contact Info) Description 01/24/2023 Refill [facility] 200 [place] [address] Jude Duran MD [address] [address] Social History Tobacco Use Types Packs/Day Years Used Date Smoking Tobacco: Never Alcohol Use Standard Drinks/Week Comments Yes 0 (1 standard drink = 0.6 oz pure alcohol) Alcoholic Drinks/day: Occasional social drink Sex and Gender Information Value Date Recorded Sex Assigned at Not on file Legal Sex Male 5:14 PM EST Gender Identity Not on file Sexual Orientation Not on file documented as of this encounter Plan of Treatment Upcoming Encounters Date Type Department Care Team (Late Contact Info) Description 01/23/2025 3:00 PM EDT Office Visit [facility] [address] [place] [address] Jude Duran MD [address] [address] 04/17/2025 4:15 PM EDT Office Visit [facility] [address] [place] [address] Jude Duran MD [address] [address] documented as of this encounter Visit Diagnoses Not on filedocumented in this encounter Care Teams Ball Machine Operator Relationship Specialty Start Date End Date Symone Dey PA-C [address] [place] [address] PCP - General Internal Medicine 03/23/23 documented as of this encounter
--- OUTSIDE RECORDS SUMMARY | 2025-01-09 08:46 | XMS_ITS | Encounter Summary ---
Author Organization [facility] Address 100 [facility] 200 [place] [address] Phone Care Team Providers Care Hot Box Spotter Name Role Phone Symone Dey PA-C Primary Care Provider [phone] Reason for Visit * Reason Comments Med Refill Encounter Details Date Type Department Care Team (Late Contact Info) Description 04/18/2024 Refill [facility] 100 [facility] 200 [place] [address] Rommel Solano MD [facility] [address] Social History Tobacco Use Types Packs/Day Years Used Date Smoking Tobacco: Never Smokeless Tobacco: Never Alcohol Use Standard Drinks/Week Comments [...] Encounters Date Type Department Care Team (Late st Contact Info) Description 01/23/2025 3:00 PM EDT Office Visit [facility] [address] [place] [address] Jude Duran MD [address] [phone] 04/17/2025 4:15 PM EDT Office Visit [facility] [address] [place] [address] Jude Duran MD [address] [address] documented as of this encounter Visit Diagnoses Not on filedocumented in this encounter Care Teams Hot Box Spotter Relationship Specialty Start Date End Date Symone Dey PA-C [address] [place] [address] PCP - General Internal Medicine 03/23/23 documented as of this encounter
--- OUTSIDE RECORDS SUMMARY | 2025-01-09 08:46 | XMS_ITS | Encounter Summary ---
Author Organization [facility] Address [address] [facility] 200 [place] [address] Phone Care Team Providers Care Coremaker Experimental Name Role Phone Symone Dey PA-C Primary Care Provider [phone] Reason for Visit * Reason Comments Med Refill Encounter Details Date Type Department Care Team (Late Contact Info) Description 02/10/2023 Refill [facility] [address] [facility] [address] [place] [address] Jude Duran MD [address] [address] Social History Tobacco Use Types [...] Office Visit [facility] 115 [place] [address] Jude Duran MD [address] [address] 04/17/2025 4:15 PM EDT Office Visit [facility] [address] [place] [address] Jude Duran MD [address] [address] documented as of this encounter Visit Diagnoses Not on filedocumented in this encounter Care Teams Coremaker Experimental Relationship Specialty Start Date End Date Symone Dey PA-C [address] [place] [address] PCP - General Internal Medicine 03/23/23 documented as of this encounter
--- OUTSIDE RECORDS SUMMARY | 2025-01-09 08:46 | XMS_ITS | Encounter Summary ---
Author Organization [facility] Address 100 [facility] 200 [place] [address] Phone Care Team Providers Care Branch Operations Specialist Name Role Phone Symone Dey PA-C Primary Care Provider Reason for Visit * Reason Comments Med Refill Encounter Details Date Type Department Care Team (Late Contact Info) Description 02/02/2023 Refill [facility] 100 [facility] 200 [place] [address] Jude Duran MD [address] [address] Social History Tobacco Use Types [...] Office Visit [facility] 115 [place] [address] Jude Duran MD [address] [address] 04/17/2025 4:15 PM EDT Office Visit [facility] [address] [place] [address] Jude Duran MD [address] [address] documented as of this encounter Visit Diagnoses Not on filedocumented in this encounter Care Teams Branch Operations Specialist Relationship Specialty Start Date End Date Symone Dey PA-C [address] [place] [address] PCP - General Internal Medicine 03/23/23 documented as of this encounter
--- OUTSIDE RECORDS SUMMARY | 2025-01-09 08:46 | XMS_ITS ---
Author Name [facility] Organization Unknown History of Medication Use Medication Directions Dispensed Refills Start Date End Date [facility] Olmesartan Medoxomil-HCTZ 40-12.5 MG Oral Tablet Olmesartan Medoxomil-HCTZ 40-12.5 MG Oral Tablet QTY: 90 tablet Days: 90 Refills: 0 Written: 07/31/23 Patient Instructions: 07/31/2023 active amLODIPine Besylate 10 MG Oral Tablet amLODIPine Besylate 10 MG Oral Tablet QTY: 90 tablet Days: 90 Refills: 0 Written: 07/28/23 Patient Instructions: 07/28/2023 active Ezetimibe 10 MG Oral Tablet Ezetimibe 10 MG Oral Tablet QTY: 90 tablet Days: 90 Refills: 0 Written: 06/15/23 Patient Instructions: 06/15/2023 active Nebivolol HCl 2.5 MG Oral Tablet Nebivolol HCl 2.5 MG Oral Tablet QTY: 90 tablet Days: 90 Refills: 0 Written: 05/19/23 Patient Instructions: 05/19/2023 active Minoxidil 10 MG Oral Tablet Minoxidil 10 MG Oral Tablet QTY: 90 tablet Days: 90 Refills: 0 Written: 05/07/23 Patient Instructions: 05/07/2023 active Problems Problem Status Onset Date Problem Type Date of Resoluti on Source Asthma (disorder) active 2023-08-08 [facility]Act [facility] Cataract (disorder) active 2023-08-08 [facility]Act [facility] Hypertensive disorder, systemic arterial (disorder) active 2023-08-08 [facility] Arthritis (disorder) active 2023-08-08 ProblemAct [facility] Hyperlipidemia (disorder) active 2023-08-08 [facility]Act [facility] Encounters Encounter Type Encounter Reason Primary Diagnosis Location Date Ambulatory Pain in left knee Pain in left knee [facility] 08/08/2023 Care Team Organization Name Specialty Phone Email Start Date End [facility]
--- OUTSIDE RECORDS SUMMARY | 2025-01-09 08:46 | XMS_ITS | Encounter Summary ---
Author Organization [facility] Address 100 [facility] 200 [place] [address] Phone Care Team Providers Care Ranch Supervisor Name Role Phone Symone Dey PA-C Primary Care Provider [phone] Reason for Visit * Reason Comments Med Refill Encounter Details Date Type Department Care Team (Late Contact Info) Description 05/18/2023 Refill [facility] 100 [facility] 200 [place] [address] Jude Duran MD [facility] [address] Social History Tobacco Use Types [...] [facility] 115 [place] [address] Jude Duran MD [address] [address] 04/17/2025 4:15 PM EDT Office Visit [facility] [address] [phone] Jude Duran MD [address] [address] documented as of this encounter Visit Diagnoses Not on filedocumented in this encounter Care Teams Ranch Supervisor Relationship Specialty Start Date End Date Symone Dey PA-C [address] [place] [address] PCP - General Internal Medicine 03/23/23 documented as of this encounter
== END 2025-01-09 09:36 | disposition home or self-care (01) ==
LOC: HO.HMCFM 08:30
PROVIDERS: PCP Physician Assistant Medical; Visit Provider Physician Assistant Medical
DX: Z00.00 Encounter for general adult medical examination without abnormal findings (principal); R73.01 Impaired fasting glucose; E55.9 Vitamin D deficiency, unspecified; E78.5 Hyperlipidemia, unspecified; I10 Essential (primary) hypertension; J45.40 Moderate persistent asthma, uncomplicated; I71.21 Aneurysm of the ascending aorta, without rupture; Z23 Encounter for immunization

== ENCOUNTER → 2025-01-09 08:30 | Outpatient (BNVA) | payer OTHER, SELFPAY | PROVIDERS: PCP Physician Assistant Medical; Visit Provider Physician Assistant Medical ==

== ENCOUNTER 2025-01-09 09:28 | Outpatient (REF) | payer OTHER, SELFPAY ==
--- OUTSIDE RECORDS SUMMARY | 2025-01-09 10:21 | XMS_ITS | Encounter Summary ---
Author Organization [facility] Address 100 [facility] 200 [place] [address] Phone Care Team Providers Care Dye House Supervisor Name Role Phone Symone Dey PA-C Primary Care Provider [phone] Reason for Visit * Reason Comments Med Refill Encounter Details Date Type Department Care Team (Late Contact Info) Description 05/18/2023 Refill [facility] 100 [facility] 200 [place] [address] Jude Duran MD [facility] [address] Social History Tobacco Use Types [...] and [facility] 115 [place] [address] Jude Duran MD [address] [address] 04/17/2025 4:15 PM EDT Office Visit [facility] [address] [phone] Jude Duran MD [address] [address] documented as of this encounter Visit Diagnoses Not on filedocumented in this encounter Care Teams Dye House Supervisor Relationship Specialty Start Date End Date Symone Dey PA-C [address] [place] [address] PCP - General Internal Medicine 03/23/23 documented as of this encounter
--- OUTSIDE RECORDS SUMMARY | 2025-01-09 10:21 | XMS_ITS | Encounter Summary ---
Author Organization [facility] Address 100 [facility] 200 [place] [address] Phone Care Team Providers Care Machine Fixer Name Role Phone Symone Dey PA-C Primary Care Provider [phone] Reason for Visit * Reason Comments Med Refill Encounter Details Date Type Department Care Team (Late Contact Info) Description 04/18/2024 Refill [facility] 100 [facility] 200 [place] [address] Rommel Solano MD [facility] [address] Social History Tobacco Use Types [...] Office Visit [facility] 115 [place] [address] Jude Duran MD [address] [phone] 04/17/2025 4:15 PM EDT Office Visit [facility] [address] [place] [address] Jude Duran MD [address] [address] documented as of this encounter Visit Diagnoses Not on filedocumented in this encounter Care Teams Machine Fixer Relationship Specialty Start Date End Date Symone Dey PA-C [address] [place] [address] PCP - General Internal Medicine 03/23/23 documented as of this encounter
--- OUTSIDE RECORDS SUMMARY | 2025-01-09 10:21 | XMS_ITS | Clinical Summary ---
Author Organization [facility] Address [address] [address] Care Team Providers Care Foreign Trade Teacher Name Role Phone Symone Dey PA-C Primary Care Provider [phone] Allergies Active Allergy Reactions Criticality Noted Date [...] 10/14/2024 Refill [facility] [address] [address] Martin Ameena Benign essential hypertension from Last [...] Upcoming Encounters Date Type Department Care Team ([facility] st Contact Info) Description 01/23/2025 3:00 PM EDT Office Visit [facility] [address] [place] [address] Jude Duran MD [address] [address] 04/17/2025 4:15 PM EDT Office Visit [facility] 115 [place] [address] Jdue Duran MD [address] [address] Health Maintenance Due Date Last [...] patient's age to complete this topic Insurance [employer] Care Teams Foreign Trade Teacher Relationship Specialty Start Date End Date Symone Dey PA-C [address] [place] [address] PCP - General Internal Medicine 03/23/23
--- OUTSIDE RECORDS SUMMARY | 2025-01-09 10:21 | XMS_ITS | Encounter Summary ---
Author Organization [facility] Address [address] [place] [address] Care Team Providers Care Videotape Sales Representative Name Role Phone SladeLinnette Primary Care Provider [phone] Encounter Details Date Type Department Care Team (Late st Contact Info) Description 06/15/2021 Orders Only [facility] Orthopedic Surgery [address] [facility] [address] [place] [address] John David MD [address] [facility] [address] [place] [address] Social History Tobacco Use Types Packs/Day Years [...] Cervicalgia documented in this encounter Care Teams Videotape Sales Representative Relationship Specialty Start Date End Date Linnette June [address] [place] [address] PCP - General Internal Medicine 06/09/21 documented as of this encounter
--- OUTSIDE RECORDS SUMMARY | 2025-01-09 10:21 | XMS_ITS | Encounter Summary ---
Author Organization [facility] Address 100 [facility] 200 [place] [address] Phone Care Team Providers Care Fashion Stylist Name Role Phone Symone Dey PA-C Primary Care Provider Reason for Visit * Reason Comments Med Refill Encounter Details Date Type Department Care Team (Late Contact Info) Description 01/24/2023 Refill [facility] 100 [facility] 200 [place] [address] Jude Duran MD [address] [address] Social History Tobacco Use Types [...] Visit [facility] 115 [place] [address] Jude Duran MD [address] [address] 04/17/2025 4:15 PM EDT Office Visit [facility] [address] [place] [address] Jude Duran MD [address] [address] documented as of this encounter Visit Diagnoses Not on filedocumented in this encounter Care Teams Fashion Stylist Relationship Specialty Start Date End Date Symone Dey PA-C [address] [place] [address] PCP - General Internal Medicine 03/23/23 documented as of this encounter
--- OUTSIDE RECORDS SUMMARY | 2025-01-09 10:21 | XMS_ITS | Encounter Summary ---
Author Organization [facility] Address 100 [facility] 200 [place] [address] Phone Care Team Providers Care Water Truck Driver Name Role Phone Symone Dey PA-C Primary Care Provider [phone] Reason for Visit * Reason Comments Med Refill Encounter Details Date Type Department Care Team (Late Contact Info) Description 02/02/2023 Refill [facility] 100 [facility] 200 [place] [address] Jude Duran MD [address] [address] Social History Tobacco Use Types [...] Office Visit [facility] [address] [place] [address] Jude Duran MD [address] [address] 04/17/2025 4:15 PM EDT Office Visit [facility] [address] [place] [address] Jude Duran MD [address] [address] documented as of this encounter Visit Diagnoses Not on filedocumented in this encounter Care Teams Water Truck Driver Relationship Specialty Start Date End Date Symone Dey PA-C [address] [place] [address] PCP - General Internal Medicine 03/23/23 documented as of this encounter
--- OUTSIDE RECORDS SUMMARY | 2025-01-09 10:21 | XMS_ITS | Encounter Summary ---
Author Organization [facility] Address 100 [facility] 200 [place] [address] Phone Care Team Providers Care Forest Pathology Professor Name Role Phone Symone Dey PA-C Primary Care Provider [phone] Reason for Visit * Reason Comments Med Refill Encounter Details Date Type Department Care Team (Late Contact Info) Description 02/10/2023 Refill [facility] 200 [place] [address] Jued Duran MD [address] [address] Social History Tobacco Use Types [...] Office Visit [facility] 115 [place] [address] Jude Duran MD [address] [address] 04/17/2025 4:15 PM EDT Office Visit [facility] [address] [place] [address] Jude Duran MD [address] [address] documented as of this encounter Visit Diagnoses Not on filedocumented in this encounter Care Teams Forest Pathology Professor Relationship Specialty Start Date End Date Symone Dey PA-C [address] [place] [address] PCP - General Internal Medicine 03/23/23 documented as of this encounter
--- OUTSIDE RECORDS SUMMARY | 2025-01-09 10:21 | XMS_ITS | Clinical Summary ---
Author Organization [facility] Address [address] [place] [address] Care Team Providers Care J2Ee Java Developer Name Role Phone Linnette June Primary Care Provider [phone] Allergies No known active allergies Medications Atorvastatin [...] Patient Date of Phone Billing Address Personal/Family [address] [place] [address] [employer] Care Teams J2Ee Java Developer Relationship Specialty Start Date End Date Linnette June [address] [place] [address] PCP - General Internal Medicine 06/09/21
[2025-01-09 11:51] LABS: Hematocrit 38.9 % (42.0-52.0); Mean Corpuscular Volume 87.6 fL (80.0-98.0); Mean Platelet Volume 9.2 fL (9.4-12.4); Platelet Count 251 X10*3/uL (160-400); Red Blood Count 4.44 X10*6/uL (4.60-5.80); Red Cell Distribution Width 12.7 % (11.0-16.0); White Blood Count 5.2 X10*3/uL (4.8-10.8)
[2025-01-09 11:53] LABS: Estimated Average Glucose 85 mg/dL; Hemoglobin A1C 99.5579 umol/L; Hemoglobin A1c % 4.6 % (<6.0); Total Hemoglobin (HGBA1C) 3781.1643 umol/L
[2025-01-09 12:13] LABS: Prostate Specific Antigen 0.93 ng/mL (<0.05-4.0)
[2025-01-09 12:48] LABS: Hemoglobin 13.1 g/dl (14.0-18.0); Mean Corpuscular HGB Conc 33.7 g/dl (31.0-36.0); Mean Corpuscular Hemoglobin 29.5 pg (27.0-33.0)
[2025-01-13 15:08] LABS: Vitamin D 25-OH, D2 <4 ng/mL; Vitamin D 25-OH, D3 19 ng/mL; Vitamin D 25-OH, Total 19 ng/mL (30-100)
== END 2025-01-09 09:29 | disposition home or self-care (01) ==
LOC: HO.WFDLDS 09:28
PROVIDERS: Visit Provider Physician Assistant Medical
DX: Z00.00 Encounter for general adult medical examination without abnormal findings (principal); Z23 Encounter for immunization; R73.01 Impaired fasting glucose; E55.9 Vitamin D deficiency, unspecified; I10 Essential (primary) hypertension; E78.5 Hyperlipidemia, unspecified; J45.40 Moderate persistent asthma, uncomplicated; I71.21 Aneurysm of the ascending aorta, without rupture; Z12.5 Encounter for screening for malignant neoplasm of prostate
CPT/HCPCS: 36415; 82306; 83036; 84153; 85027; 90471; 90715; 96127; 96160